=== PATIENT | male | born 1965 | race Two or more races ===

== ENCOUNTER 2022-09-11 20:19 | Emergency (ER) | payer OTHER ==
[~2022-09-11] VITALS: Ht 170.2 cm; Wt 95.3 kg
--- NOTE | 2022-09-11 20:39 | NUR ---
PATIENT [id number] C/O HEADACHE TODAY, HAS BEEN DRINKING FOR THE PAST 10 DAYS. LAST DRINK WAS 1 HR AGO. PATIENT IS A/O, RR EVEN AND UNLABORED, NO SOB NOTED, PATINET IS AFEBRILE. PATIENT TAKEN TO ER BE 14. WILL CONTINUE TO MONITOR.
[2022-09-11] MEDS ORDERED: KETOROLAC TROMETHAMINE INJ 60 MG/2 ML VIAL IM ONE (21:30)
[2022-09-11] MEDS ORDERED: LIDOCAINE 5% (PATCH) 1 EA PATCH TP ONE ×2 (21:30→21:36)
[2022-09-11] MEDS ORDERED: KETOROLAC TROMETHAMINE INJ 30 MG/ML VIAL ONE (21:36)
--- NOTE | 2022-09-11 23:00 | NUR ---
[facility] [phone]
[2022-09-11] MEDS ORDERED: IBUP-1953 PO (23:03)
[2022-09-11] MEDS ORDERED: LIDO30AD10 TP (23:03)
--- NOTE | 2022-09-11 23:18 | NUR ---
Patient discharged to home in stable condition. Written and verbal after care instructions given. Patient verbalizes understanding of instruction. PT ambulatory with a steady gait
[2022-09-12 04:09] VITALS: BP 145/85
== END 2022-09-11 23:18 | disposition home or self-care (01) ==
LOC: ER 20:27
DX: S29.012A Strain of muscle and tendon of back wall of thorax, initial encounter (principal); F10.10 Alcohol abuse, uncomplicated; Z60.2 Problems related to living alone; X58.XXXA Exposure to other specified factors, initial encounter; Y93.89 Activity, other specified; Y92.89 Other specified places as the place of occurrence of the external cause; Y99.8 Other external cause status; Y90.9 Presence of alcohol in blood, level not specified
CPT/HCPCS: 99283; 96372; 82962; J1885